=== PATIENT | female | born 1985 | race Caucasian/White ===

== ENCOUNTER 2016-10-08 21:41 | Emergency (ER) | payer OTHER ==
[2016-10-08 22:52] LABS: PH,URINE 6.5 (5.0-8.0); URINE GLUCOSE (UA) NEGATIVE (NEGATIVE); URINE PROTEIN 1+ (NEGATIVE)
[2016-10-08 22:58] LABS: HCG,QUALITATIVE URINE NEGATIVE
[2016-10-08 23:25] LABS: URINE RBC 20-30 /hpf; URINE WBC 15-20 /hpf
[2016-10-08 23:26] LABS: URINE BACTERIA 4+; URINE EPITHELIAL CELLS 30-40 /hpf
[2016-10-08] MEDS ORDERED: CIPROFLOXACIN 500 MG TABLET ONE (23:33)
[2016-10-09 00:50] LABS: URINE APPEARANCE SL CLOUDY; URINE COLOR ORANGE
== END 2016-10-08 23:51 | disposition home or self-care (01) ==
LOC: ED 21:41
DX: N39.0 Urinary tract infection, site not specified (principal); B96.89 Other specified bacterial agents as the cause of diseases classified elsewhere
CPT/HCPCS: 81025; 81001; 99283 ×2; A9270